=== PATIENT | female | born 1970 | race Caucasian/White ===

== ENCOUNTER → 2021-06-04 | Outpatient (CLI) | payer SELFPAY ==
[2015-02-03 11:50] VITALS: BP 110/72
[~2021-06-04] MED LIST: IBUP-1742 PO; UNK ANTIBIOTIC
--- NOTE | 2021-06-05 09:13 | RAD ---
EXAM: ULTRASOUND PELVIS INDICATION: Menorrhagia. COMPARISON: None available. TECHNIQUE: Transabdominal, transvaginal sonography was performed. FINDINGS: The uterus measures 9.9 x 5.9 x 5.1 cm. Endometrium measures 8 mm in thickness. The uterus appears so mewhat heterogenous in echogenicity. The right ovary, left ovary could not be visualized. IMPRESSION: Heterogeneous appearance of the uterus could be adenomyosis. Electronically signed by: Eduardo David MD (06/05/2021 9:10 AM) [id number]
== END ==
LOC: US 15:47
PROVIDERS: ATTEND Nurse Practitioner Women's Health
DX: N92.0 Excessive and frequent menstruation with regular cycle (principal)
CPT/HCPCS: 76830; 76856